=== PATIENT | female | born 1935 | race Hispanic/Latino ===

== ENCOUNTER 2022-04-02 12:27 | Outpatient (CLI) | payer MEDICARE, BC | END 2022-04-02 12:28 | disposition home or self-care (01) | LOC: CSHRAD 12:27 | PROVIDERS: ATTEND Specialist | DX: R07.9 Chest pain, unspecified (principal); R91.8 Other nonspecific abnormal finding of lung field; R59.0 Localized enlarged lymph nodes; J90 Pleural effusion, not elsewhere classified; E27.8 Other specified disorders of adrenal gland | CPT/HCPCS: 71250 ==

== ENCOUNTER 2022-05-20 09:23 | Day surgery (SDC) | payer MEDICARE, BC ==
[2022-05-16 12:24] VITALS: BMI 24.7
[2022-05-20] MEDS ORDERED: Bupivacaine 0.25% HCL 30 ML VIAL ONE (10:27)
[2022-05-20] MEDS ORDERED: EPINEPHrine 1 MG/ML AMP ONE (10:28)
[2022-05-20] MEDS ORDERED: CEFAZOLIN 2 GM VIAL ONE (11:05)
[2022-05-20] MEDS ORDERED: Fentanyl 100 MCG/2 ML VIAL ONE ×2 (11:08→12:23)
[2022-05-20] MEDS ORDERED: PROPOFOL 20 ML ONE ×2 (11:08→11:47)
[2022-05-20] MEDS ORDERED: Lidocaine 1% PF 5 ML VIAL ONE ×2 (11:09→13:03)
[2022-05-20] MEDS ORDERED: Ondansetron PF 4 MG/2 ML Vial ONE (11:09)
[2022-05-20] MEDS ORDERED: PHENYLEPHRINE-NS 100 MCG/ML 10 ML SYRINGE ONE (11:53)
[2022-05-20] MEDS ORDERED: Ketorolac Tromethamine 30 MG/ML VIAL ONE (12:44)
[2022-05-20] MEDS ORDERED: Dexamethasone 4 mg/ml Vial ONE (13:03)
== END 2022-05-20 15:00 | disposition home or self-care (01) ==
LOC: CSHSDC 09:23
PROVIDERS: ATTEND Surgery
PROC: 0JH60WZ Insertion of Totally Implantable Vascular Access Device into Chest Subcutaneous Tissue and Fascia, Open Approach (ICD-10-PCS; principal; 2022-05-20)
DX: C34.90 Malignant neoplasm of unspecified part of unspecified bronchus or lung (principal); I10 Essential (primary) hypertension; E78.5 Hyperlipidemia, unspecified; K21.9 Gastro-esophageal reflux disease without esophagitis; Z20.822 Contact with and (suspected) exposure to COVID-19; Z79.899 Other long term (current) drug therapy
CPT/HCPCS: 36561; 71046; C1788; J0171; J0690; J1100; J1642; J1885; J2405; J2704; J3010; S0020

== ENCOUNTER → 2022-05-21 | Day surgery (SDC) | payer MEDICARE, BC ==
[~2022-05-21] MED LIST: Sodium Bicarbonate 2.5 MEQ/5 ML VIAL ONE
[2022-05-21 13:13] VITALS: BP 115/89; TEMP 98.2
[2022-05-21 13:34] LABS: ALT (SGPT) 17 U/L (8-55); AST (SGOT) 19 U/L (5-34); Alkaline Phosphatase 111 U/L (40-110); Anion Gap 14 mmol/L (10-20); BUN (Urea Nitrogen) 12 mg/dL (9.8-20.1); Bilirubin, Total 0.5 mg/dL (0.2-1.2); Calc. Creatinine Clearance 44 mL/min (70-130); Calcium 9.7 mg/dL (7.8-10.44); Carbon Dioxide 27 mmol/L (23-31); Chloride 103 mmol/L (98-107); Estimated GFR 70; Globulin 2.9 g/dL (2.4-3.5); Glucose 114 mg/dL (83-110); Potassium 4.5 mmol/L (3.5-5.1); Protein, Total 6.9 g/dL (5.8-8.1); Sodium 139 mmol/L (136-145)
[2022-05-21 13:43] LABS: #Basophils 0.1 10x3/uL (0.0-0.2); #Eosinphils 0.4 10x3/uL (0.0-0.5); #Monocytes 0.7 10x3/uL (0.0-1.1); #Neutrophils 7.7 10x3/uL (1.5-8.4); %Basophils 0.6 % (0.0-2.0); %Eosinophils 3.6 % (0.0-6.0); %Lymphocytes 21.4 % (18.0-47.0); %Neutrophils 68.1 % (40.0-75.0); Hemoglobin 15.2 g/dL (12.0-15.5); Mean Corpuscular HGB CONC 32.3 g/dL (32.0-36.0); Mean Corpuscular Hemoglobin 28.7 pg (27.0-33.0); Mean Platelet Volume 10.4 fl (7.4-10.4); Platelet Count 248 10x3/uL (150-450); RBC Distribution Width 13.7 % (11.5-14.5); Red Blood Cell (RBC) Count 5.29 10x6/uL (3.90-5.03); White Blood Cell (WBC) Count 11.2 10x3/uL (3.5-10.5)
[2022-05-21 15:14] LABS: BF Color Yellow; Body Fluid Source Pleural Fluid; Clarity Hazy (Clear); Tube # EDTA
[2022-05-21 15:19] LABS: BF Segmented Neutrophils 25 %; Cell Count Non Hematic 9 %; Lymphocytes 66 %
[2022-05-21 20:42] LABS: Fluid, Protein 3.8 g/dL (Not Available)
[2022-05-22 11:39] LABS: Ref Lab Test Ordered MTC PCR; Reference Lab Name LABCORP
== END ==
LOC: CSHULT 11:14
PROVIDERS: ATTEND Specialist
PROC: 0W993ZZ Drainage of Right Pleural Cavity, Percutaneous Approach (ICD-10-PCS; principal; 2022-05-21)
DX: J90 Pleural effusion, not elsewhere classified (principal); R91.8 Other nonspecific abnormal finding of lung field; E78.5 Hyperlipidemia, unspecified; I10 Essential (primary) hypertension; I73.9 Peripheral vascular disease, unspecified; Z79.899 Other long term (current) drug therapy
CPT/HCPCS: 71275; 80053; 82150; 82378; 82465; 82945; 83615; 84157; 85025; 85379; 86480; 87116; 87206; 88112; 88305; 89051

== ENCOUNTER 2022-06-11 09:41 | Day surgery (SDC) | payer MEDICARE, BC ==
[~2022-06-11 09:41] MED LIST changes: +Lidocaine 1% MPF 2 ML VIAL ONE; -Sodium Bicarbonate 2.5 MEQ/5 ML VIAL ONE
[2022-06-11] MEDS ORDERED: Lidocaine 1% MPF 2 ML VIAL ONE (09:42)
[2022-06-11] MEDS ORDERED: Sodium Bicarbonate 2.5 MEQ/5 ML VIAL ONE (09:42)
[2022-06-11 10:27] LABS: #Basophils 0.1 10x3/uL (0.0-0.2); #Eosinphils 0.5 10x3/uL (0.0-0.5); #Monocytes 0.7 10x3/uL (0.0-1.1); #Neutrophils 6.4 10x3/uL (1.5-8.4); %Basophils 0.4 % (0.0-2.0); %Lymphocytes 34.8 % (18.0-47.0); %Monocytes 5.8 % (0.0-10.0); %Neutrophils 54.7 % (40.0-75.0); Hemoglobin 13.3 g/dL (12.0-15.5); Mean Corpuscular HGB CONC 33.4 g/dL (32.0-36.0); Mean Corpuscular Hemoglobin 29.2 pg (27.0-33.0); Mean Corpuscular Volume 87.5 fl (81.6-98.3); Platelet Count 264 10x3/uL (150-450); RBC Distribution Width 14.6 % (11.5-14.5); Red Blood Cell (RBC) Count 4.55 10x6/uL (3.90-5.03); White Blood Cell (WBC) Count 11.6 10x3/uL (3.5-10.5)
[2022-06-11 10:30] LABS: ALT (SGPT) 16 U/L (8-55); AST (SGOT) 16 U/L (5-34); Albumin 3.5 g/dL (3.4-4.8); Alkaline Phosphatase 80 U/L (40-110); Anion Gap 11 mmol/L (10-20); BUN (Urea Nitrogen) 8 mg/dL (9.8-20.1); Bilirubin, Total 0.5 mg/dL (0.2-1.2); Calc. Creatinine Clearance 0 mL/min (70-130); Calcium 8.6 mg/dL (7.8-10.44); Carbon Dioxide 23 mmol/L (23-31); Chloride 103 mmol/L (98-107); Estimated GFR 85; Globulin 2.3 g/dL (2.4-3.5); Glucose 90 mg/dL (83-110); Potassium 4.2 mmol/L (3.5-5.1); Protein, Total 5.8 g/dL (5.8-8.1); Sodium 133 mmol/L (136-145)
[2022-06-11 10:51] LABS: Free T4 (Free Thyroxine) 0.99 ng/dL (0.70-1.48); Thyroid Stimulating Hormone 2.7139 uIU/mL (0.35-4.94)
[2022-06-11 10:54] VITALS: BP 129/73; TEMP 97
[2022-06-11] MEDS ORDERED: FLU VACC QS2022-23(65YR UP)/PF 240 MCG/0.7 ML SYRINGE IM ONE (11:00)
== END 2022-06-11 10:55 | disposition home or self-care (01) ==
LOC: CSHULT 09:41
PROVIDERS: ATTEND Specialist
DX: J90 Pleural effusion, not elsewhere classified (principal); Z53.8 Procedure and treatment not carried out for other reasons; I10 Essential (primary) hypertension; E78.5 Hyperlipidemia, unspecified; C34.91 Malignant neoplasm of unspecified part of right bronchus or lung; I49.1 Atrial premature depolarization; I73.9 Peripheral vascular disease, unspecified; K21.9 Gastro-esophageal reflux disease without esophagitis; R73.03 Prediabetes; C91.10 Chronic lymphocytic leukemia of B-cell type not having achieved remission; M85.80 Other specified disorders of bone density and structure, unspecified site; Z86.73 Personal history of transient ischemic attack (TIA), and cerebral infarction without residual deficits; Z79.2 Long term (current) use of antibiotics; Z79.899 Other long term (current) drug therapy; Z88.8 Allergy status to other drugs, medicaments and biological substances; Z88.1 Allergy status to other antibiotic agents; Z87.891 Personal history of nicotine dependence; Z90.49 Acquired absence of other specified parts of digestive tract
CPT/HCPCS: 80053; 84439; 84443; 85025; 86140; J1642